=== PATIENT | male | born 1955 | race Caucasian/White ===

== ENCOUNTER 2022-04-23 07:52 | Emergency (ER) | payer MEDICAID ==
[~2022-04-23] VITALS: Ht 160 cm; Wt 72.6 kg
[2022-04-23 08:02] VITALS: BP_SYST 143
[2022-04-23] MEDS: MORPHINE 4 MG INJ. 4 MG/ML VIAL IM ONE (08:31)
[2022-04-23] MEDS ORDERED: IBUP-1969 PO (08:36)
[2022-04-23 09:04] VITALS: BP_SYST 132
== END 2022-04-23 09:05 | disposition home or self-care (01) ==
LOC: SED 07:52
DX: M24.412 Recurrent dislocation, left shoulder (principal); Z79.899 Other long term (current) drug therapy
CPT/HCPCS: 99284; 23650; 73030; 96372; J2270